=== PATIENT | female | born 1945 | race Two or more races ===

== ENCOUNTER 2021-03-29 05:10 | Day surgery (SDC) | payer OTHER ==
[~2021-03-29 05:10] MED LIST: ABATINEX680 MG PO; LIPITOR20 MG PO; METFORMIN HCL500 M3 PO; TRICOR145 MG PO; VASOTEC5 MG PO
[2021-03-29] MEDS ORDERED: MACROBID 100 M100 MG PO (10:01)
[2021-03-29] MEDS ORDERED: ULTRACET PO (10:01)
== END 2021-03-29 13:20 | disposition home or self-care (01) ==
LOC: CIR.AMB 05:10
PROVIDERS: ATTEND Obstetrics & Gynecology Gynecology
DX: N81.3 Complete uterovaginal prolapse (principal); Z20.822 Contact with and (suspected) exposure to COVID-19